=== PATIENT | male | born 1960 | race Caucasian/White ===

== ENCOUNTER 2024-03-08 11:07 | Emergency (ER) | payer MEDICAID | END 2024-03-08 12:50 | disposition home or self-care (01) | LOC: FB.ED 11:07 | DX: S91.214A Laceration without foreign body of right lesser toe(s) with damage to nail, initial encounter (principal); Z87.891 Personal history of nicotine dependence; W29.8XXA Contact with other powered hand tools and household machinery, initial encounter | CPT/HCPCS: 99283 ==